=== PATIENT | male | born 1980 | race Caucasian/White ===

== ENCOUNTER 2016-08-23 08:08 | Emergency (ER) | payer BC ==
[2016-08-23 08:18] VITALS: BP 142/99
[2016-08-23] MEDS ORDERED: Diphtheria,Pertussis(Acell),Tetanus Vaccine 0.5 ML SDV inactive IM ONE (08:25)
--- NOTE | 2016-08-23 08:27 | EDM.PDOC ---
ED HPI GENERAL MEDICAL PROBLEM - General Chief Complaint: Bite:Animal, Insect Stated Complaint: TICK REMOVAL ON NECK Time Seen by Provider: 08/23/16 08:20 - History of Present Illness INITIAL COMMENTS - FREE TEXT/NARRATIVE: 35-year-old male presents emergency room after finding a tick on his neck. This tick was not present yesterday morning when he took a shower he took a shower this morning and noticed the tech. It is on the left side of his neck. Patient has not been outside much however he has a cat that is a free roamer. Patient has not had any other symptoms his last tetanus shot was over 10 years ago. Back Pain Score (Numeric/FACES): 5 - Related Data Allergies Allergy/AdvReac Type Severity Reaction Status Date / Time No Known Allergies Allergy Verified 08/23/16 08:14 Home Meds: Home Meds . [No Known Home Meds] 04/13/14 [History] Past Medical History - Past Health History Medical/Surgical History: Denies Medical/Surgical History Social & Family History - Tobacco Use Smoking Status *Q: Former Smoker Years of Tobacco use: 10 Packs/Tins Daily: 0.5 Used Tobacco, but Quit: Yes Month Tobacco Last Used: 6 years ago - Caffeine Use Caffeine Use: Reports: Coffee - Recreational Drug Use Recreational Drug Use: Yes Drug Use in Last 12 Months: Yes Recreational Drug Type: Reports: Marijuana/Hashish Recreational Drug Use Frequency: Daily ED ROS GENERAL - Review of Systems Review Of Systems: See Below Constitutional: Reports: No Symptoms HEENT: Reports: No Symptoms Respiratory: Reports: No Symptoms Cardiovascular: Reports: No Symptoms GI/Abdominal: Reports: No Symptoms Musculoskeletal: Reports: No Symptoms Skin: Reports: No Symptoms Neurological: Reports: No Symptoms ED EXAM, ANIMAL BITE - Physical Exam Exam: See Below Exam Limited By: No Limitations General Appearance: Alert, No Apparent Distress Head: Atraumatic, Normocephalic Neck: Normal Inspection, Supple, Non-Tender, Full Range of Motion, Other (Tic noted on the left lateral neck. This appears to be a dog tick, however, this is in question. The tick is removed using splinter forceps the tick appears to be intact and is still alive). No: Lymphadenopathy (L), Lymphadenopathy (R) Course - Vital Signs Last Recorded V/S: Last Vital Signs Temp 35.8 C 08/23/16 08:15 Pulse 50 L 08/23/16 08:15 Resp 16 08/23/16 08:15 BP 142/99 H 08/23/16 08:15 Pulse Ox 98 08/23/16 08:15 - Orders/Labs/Meds Orders: Active Orders 24 hr Category Date Time Status Vaccines to be Administered [RC] PER UNIT ROUTINE Care 08/23/16 08:25 Active Meds: Medications Discontinued Medications Generic Name Dose Route Start Last Admin Trade Name Roxana PRN Reason Stop Dose Admin Diphtheria/Tetanus/Acell Pertussis 0.5 ml 08/23/16 08:25 08/23/16 08:31 Boostrix IM 08/23/16 08:26 0.5 ml .ONCE ONE Administration - Re-Assessments/Exams Free Text/Narrative Re-Assessment/Exam: 08/23/16 09:[address] Romero's infectious disease at [facility] no antibiotic prophylaxis recommended. Tetanus is updated. The incidence of Lyme is extremely low his exposure was less than 36 hours. [place] and [place] spotted fever is a possibility but no studies recommend prophylactic treatment at this point. Departure - Departure Time of Disposition: 09:04 Disposition: Home, Self-Care 01 Clinical Impression: Tick bite - Discharge Information Forms: ED Department Discharge Additional Instructions: Return to the emergency room with any questions or problems. Followup in the hospital clinic if needed. [phone] - My Orders Last 24 Hours: My Active Orders 08/23/16 08:25 Vaccines to be Administered [RC] PER UNIT ROUTINE - Assessment/Plan Last 24 Hours: My Active Orders 08/23/16 08:25 Vaccines to be Administered [RC] PER UNIT ROUTINE
== END 2016-08-23 09:10 | disposition home or self-care (01) ==
LOC: JD.ED 08:08
DX: S10.96XA Insect bite of unspecified part of neck, initial encounter (principal); Z87.891 Personal history of nicotine dependence; Z23 Encounter for immunization; W57.XXXA Bitten or stung by nonvenomous insect and other nonvenomous arthropods, initial encounter
CPT/HCPCS: 10120; 90471; 90715; 99283; 99283-25